=== PATIENT | female | born 1945 | race Caucasian/White ===

== ENCOUNTER 2022-02-08 09:35 | Outpatient (CLI) | payer MEDICARE, SELFPAY ==
[2022-02-08 12:41] LABS: Vitamin D,25 Hydroxy 60.8 ng/mL
[2022-02-08 12:52] LABS: Hemoglobin A1c 9.2 % (3.8-5.6)
[2022-02-08 13:06] LABS: ALB/GLOB Ratio 0.9 RATIO (0.9-2.4); AST(SGOT) 15 U/L (15-37); Alanine Aminotransfer ALT/SGPT 24 U/L (13-56); Albumin, Serum 3.7 g/dL (3.2-5.0); Alkaline Phosphatase 121 U/L (45-117); Anion Gap 6 (5-15); BUN 16 mg/dL (7-18); Calcium,Total 10.1 mg/dL (8.5-10.1); Chloride 91 mmol/L (98-107); Cholesterol 99 mg/dL (200); Creatinine, Serum 1.14 mg/dL (0.55-1.02); EST Glomerular Filtration Rate 49 mL/min (>60); Est Glom Filt Rate - Afr Amer 59 mL/min (>60); Globulin 4.1 g/dL (2.2-4.2); Glucose 364 mg/dL (74-106); High Density Lipoprotein 58 mg/dL; Potassium 4.3 mmol/L (3.5-5.1); Protein, Total 7.8 g/dL (6.4-8.2); Sodium Level 126 mmol/L (136-145); Thyroid Stim Hormone (TSH) 1.35 uIU/mL (0.358-3.74); Triglycerides 96 mg/dL; Very Low Density Lipoprotein 19 mg/dL (5-40)
== END 2022-02-08 23:59 | disposition home or self-care (01) ==
PROVIDERS: PCP Nurse Practitioner Family; Referring Provider Internal Medicine Endocrinology, Diabetes & Metabolism; Visit Provider Internal Medicine Endocrinology, Diabetes & Metabolism
DX: E11.65 Type 2 diabetes mellitus with hyperglycemia (principal); N25.81 Secondary hyperparathyroidism of renal origin; Z79.4 Long term (current) use of insulin; E55.9 Vitamin D deficiency, unspecified; M81.0 Age-related osteoporosis without current pathological fracture
CPT/HCPCS: 36415; 80053; 80061; 82306; 83036; 83970; 84443

== ENCOUNTER 2022-03-07 11:25 | Outpatient (CLI) | payer MEDICARE, SELFPAY ==
[2022-03-07 12:26] LABS: Anion Gap 6 (5-15); BUN 20 mg/dL (7-18); BUN/Creat Ratio 17.2 RATIO (10-20); Calcium,Total 10.4 mg/dL (8.5-10.1); Chloride 88 mmol/L (98-107); Creatinine, Serum 1.16 mg/dL (0.55-1.02); EST Glomerular Filtration Rate 48 mL/min (>60); Est Glom Filt Rate - Afr Amer 58 mL/min (>60); Glucose 383 mg/dL (74-106); Potassium 4.2 mmol/L (3.5-5.1); Sodium Level 123 mmol/L (136-145)
== END 2022-03-07 23:59 | disposition home or self-care (01) ==
LOC: BIMLAB 11:25
PROVIDERS: PCP Nurse Practitioner Family; Referring Provider Nurse Practitioner Family; Visit Provider Nurse Practitioner Family
DX: E87.1 Hypo-osmolality and hyponatremia (principal)
CPT/HCPCS: 36415; 80048

== ENCOUNTER 2022-03-12 08:02 | Outpatient (CLI) | payer MEDICARE, SELFPAY ==
[2022-03-12 12:19] LABS: Urine Sodium 79 mmol/L (Not Establ.)
[2022-03-12 13:36] LABS: Osmolality, Serum 277 mOsm/KG (280-301); Osmolality, Urine 474 mOsm/KG
[2022-03-13 15:31] LABS: Adrenocorticotropic Hormone 26.6 pg/mL (7.2-63.3)
== END 2022-03-12 23:59 | disposition home or self-care (01) ==
LOC: BIMLAB 08:03
PROVIDERS: PCP Nurse Practitioner Family; Referring Provider Nurse Practitioner Family; Visit Provider Nurse Practitioner Family
DX: E87.1 Hypo-osmolality and hyponatremia (principal)
CPT/HCPCS: 36415; 82024; 82533; 83930; 83935; 84300